=== PATIENT | male | born 1975 | race Caucasian/White ===

== ENCOUNTER 2018-05-10 08:45 | Emergency (ER) | payer OTHER ==
[2018-05-10 08:53] VITALS: BP 148/93
--- NOTE | 2018-05-10 09:08 | ER Document Report ---
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 No fever but he has felt ill this weekend. Associated Symptoms: None Exacerbated by: Walking Relieved by: Denies Similar symptoms previously: No Recently seen / treated by doctor: No - ROS ROS below otherwise negative: Yes Systems Reviewed and Negative: Yes All other systems reviewed and negative Past Medical History - General Information source: Patient - Social History Smoking Status: Unknown if Ever Smoked Frequency of alcohol use: None Drug Abuse: None Lives with: Family Family History: Reviewed & Not Pertinent - Medical History Medical History: Negative Surgical Hx: Negative Vertical Provider Document - CONSTITUTIONAL Agree With Documented VS: Yes Exam Limitations: No Limitations - INFECTION CONTROL TRAVEL OUTSIDE OF THE [place] IN LAST 30 DAYS: No - HEENT HEENT: negative: Conjuctival Injection, Pharyngeal Erythema - NECK Neck: Supple - RESPIRATORY Respiratory: Breath Sounds Normal, No Respiratory Distress - CARDIOVASCULAR Cardiovascular: Regular Rate, Regular Rhythm - MUSCULOSKELETAL/EXTREMETIES Musculoskeletal/Extremeties: MAEW, Tender - 5 mm crusted center to a 2-1/2 cm erythematous lesion proximal posterior left calf - NEURO Level of Consciousness: Alert Motor/Sensory: No Motor Deficit, No Sensory Deficit Course - Vital Signs Vital signs: Temp Pulse Resp BP Pulse Ox 98.1 F 83 18 148/93 H 94 05/10/18 08:50 05/10/18 08:50 05/10/18 08:50 05/10/18 08:50 05/10/18 08:50 Procedures - Incision and Drainage Left Leg Time completed: 09:46 Anesthetic type: 1% Lidocaine mL's of anesthetic: 3 Blade size: 11 I&D procedure: Betadine prep applied Incision Method: Incision made by scalpel - debridement of the necrotic tissue Amount/type of drainage: Debrided the devitalized tissue that was in the center there was no pus Discharge - Discharge Clinical Impression: Leg bite debridement, Tick versus spider bite Condition: Good Disposition: HOME, SELF-CARE Instructions: Dressing Instructions for Open Wounds ([facility]), Swollen Insect Bite or Sting ([facility]) Additional Instructions: Wash with soap and water daily bacitracin gauze dressing Wounds on the lower legs may take up to 3 months to completely heal Return to the emergency room for any increased swelling pain red streaks pus fever Doxycycline until it is gone twice a day Prescriptions: Doxycycline Hyclate 100 mg PO BID #30 tablet
[2018-05-10] MEDS ORDERED: DOXYCYCLINE HYCLATE 100 MG TABLET PO ONE (09:28)
== END 2018-05-10 09:55 | disposition home or self-care (01) ==
LOC: ER 08:45
DX: S80.862A Insect bite (nonvenomous), left lower leg, initial encounter (principal); W57.XXXA Bitten or stung by nonvenomous insect and other nonvenomous arthropods, initial encounter; Y93.H3 Activity, building and construction; Y92.9 Unspecified place or not applicable; Y99.0 Civilian activity done for income or pay
CPT/HCPCS: 99282

== ENCOUNTER 2019-02-07 06:59 | Emergency (ER) | payer SELFPAY ==
[2019-02-07] MEDS ORDERED: ASPIRIN 81 MG TABLET, CHEWABLE PO ONE (07:49)
--- NOTE | 2019-02-07 07:53 | ER Document Report ---
ED General - General Chief Complaint: Chest Pain Stated Complaint: CHEST PAIN Time Seen by Provider: 02/07/19 07:10 TRAVEL OUTSIDE OF THE [place] IN LAST 30 DAYS: No - HPI Notes: Patient is a 44-year-old male who presents to the emergency department for evaluation of chest pain. Substernal with radiation into the back. He states that is been going on intermittently for a few weeks, but worsened this morning. He states that it only lasts a few seconds at the most. He is short of breath with it. He denies any associated diaphoresis or near syncope. He states he has been occasionally dizzy, occasionally nauseated with it. It does not seem to be provoked by any sort of physical activity. In fact, this last episode was brought about all he was sleeping. It does seem to wake him from sleep. He described as a grabbing sensation. - Related Data Allergies/Adverse Reactions: No Known Allergies Allergy (Unverified 05/10/18 08:46) Past Medical History - General Information source: Patient - Social History Smoking Status: Never Smoker Frequency of alcohol use: Rare Drug Abuse: Marijuana Family History: CAD - Father passed from [place] at the age of 57 Renal/ Medical History: Denies: Hx Peritoneal Dialysis Review of Systems - Review of Systems Constitutional: No symptoms reported EENT: No symptoms reported Cardiovascular: See HPI Respiratory: See HPI Gastrointestinal: See HPI Genitourinary: No symptoms reported Musculoskeletal: No symptoms reported Skin: No symptoms reported Neurological/Psychological: No symptoms reported Physical Exam - Vital signs Vitals: Temp Pulse Resp BP Pulse Ox 97.2 F 73 18 171/104 H 94 02/07/19 07:01 02/07/19 07:01 02/07/19 07:01 02/07/19 07:01 02/07/19 07:01 - Notes Notes: Vital signs reviewed, please refer to chart. Head is normocephalic, atraumatic. Pupils equal round, reactive to light. Neck is supple without meningismus. Heart is regular rate and rhythm. Lungs are clear to auscultation bilaterally. Abdomen is soft, nontender, normoactive bowel sounds throughout. Extremities without cyanosis, clubbing. Posterior calves are nontender. Peripheral pulses are equal. Skin is warm and dry. Patient is awake, alert, neurological exam is nonfocal. Course - Re-evaluation Re-evalutation: 02/07/19 12:36 Patient presents to the emergency department for evaluation of chest pain. It is atypical in nature. He is been going on for weeks. He had an episode today that was more intense and woke him from sleep so he presented to the ED for evaluation. His laboratory investigations were unremarkable, including delta troponin. EKG failed to reveal any acute signs of infarction. Patient does have risk factors. His elevated BMI, his elevated blood pressure, and his family history were discussed in great detail. The need for him to adjust his lifestyle and to establish care with a primary care physician was stressed. The patient voiced understanding to this. We will refer him to primary care. He is to return to the ED with worsening or new concerning symptoms of any sort. - Vital Signs Vital signs: Temp Pulse Resp BP Pulse Ox 97.2 F 73 20 165/93 H 92 02/07/19 07:01 02/07/19 07:01 02/07/19 12:01 02/07/19 12:01 02/07/19 12:01 - Laboratory Result Diagrams: 02/07/19 07:43 02/07/19 07:43 Laboratory results interpreted by me: 02/07/19 02/07/19 02/07/19 07:43 07:43 07:43 WBC 11.4 H Glucose 138 H ALT 76 H Creatine Kinase 588 H CK-MB (CK-2) 4.91 H - Diagnostic Test Radiology reviewed: Reports reviewed Radiology results interpreted by me: 02/07/19 12:38 Chest X-Ray 02/07/19 07:49 IMPRESSION: NO ACUTE RADIOGRAPHIC FINDING IN THE CHEST. - EKG Interpretation by Me Additional EKG results interpreted by me: 02/07/19 07:53 Sinus mechanism with a rate of 81 bpm. First-degree AV block. Left axis deviat ion. T wave inversions mild flattening inferiorly, ischemia versus normal variant. No ST changes concerning for acute infarction. No prior studies for comparison. Discharge - Discharge Clinical Impression: Chest pain Qualifiers: Chest pain type: unspecified Qualified Code(s): R07.9 - Chest pain, unspecified Condition: Stable Disposition: HOME, SELF-CARE Instructions: Chest Pain of Unclear Cause ([facility]) Additional Instructions: No clear cause was found for your chest pain today. You need to establish care with a primary care physician. You need to address all of your risk factors, including high blood pressure, cholesterol, etc. Return to the emergency department with worsening or new concerning symptoms of any sort. Forms: Elevated Blood Pressure [facility] [NO LOCAL MD] - Follow up as needed ANGELA BARRERA MD [COMMUNITY BASED STAFF] - Follow up as needed RONALD MARCH MD [ACTIVE STAFF] - Follow up as needed
[2019-02-07 08:02] LABS: ABSOLUTE BASOPHILS # (AUTO) 0.1 10^3/uL (0.0-0.2); ABSOLUTE EOSINOPHILS # (AUTO) 0.1 10^3/uL (0.0-0.6); ABSOLUTE LYMPHOCYTES (AUTO) 3.5 10^3/uL (0.5-4.7); ABSOLUTE MONOCYTES (AUTO) 0.8 10^3/uL (0.1-1.4); BASOPHILS % (AUTO) 0.7 % (0-2); EOSINOPHILS % (AUTO) 1.1 % (0-6); HEMATOCRIT 47.7 % (37.9-51.0); HEMOGLOBIN 15.8 g/dL (13.5-17.0); LYMPHOCYTES % (AUTO) 30.2 % (13-45); MEAN CORPUSCULAR HEMOGLOBIN 28.9 pg (27.0-33.4); MEAN CORPUSCULAR HGB CONC 33.1 g/dL (32.0-36.0); MEAN CORPUSCULAR VOLUME 87 fl (80-97); MONOCYTES % (AUTO) 7.2 % (3-13); PLATELET COUNT 285 10^3/uL (150-450); RED BLOOD COUNT 5.47 10^6/uL (4.35-5.55); RED CELL DISTRIBUTION WIDTH 12.9 % (11.5-14.0); SEGMENTED NEUTROPHILS % (AUTO) 60.8 % (42-78); TOTAL CELLS COUNTED % (AUTO) 100 %; WHITE BLOOD COUNT 11.4 10^3/uL (4.0-10.5)
[2019-02-07 08:25] LABS: ALANINE AMINOTRANSFERASE 76 U/L (21-72); ALBUMIN 3.9 g/dL (3.5-5.0); ALKALINE PHOSPHATASE 79 U/L (38-126); ANION GAP 10 (5-19); ASPARTATE AMINO TRANSFERASE 46 U/L (17-59); BILIRUBIN,DIRECT 0.3 mg/dL (0.0-0.4); BLOOD UREA NITROGEN 12 mg/dL (7-20); CALCIUM 9.8 mg/dL (8.4-10.2); CARBON DIOXIDE 29 mmol/L (22-30); CHLORIDE 103 mmol/L (98-107); CREATINE KINASE 588 U/L (55-170); GLUCOSE 138 mg/dL (75-110); POTASSIUM 4.5 mmol/L (3.6-5.0); SODIUM 141.7 mmol/L (137-145); TOTAL PROTEIN 7.2 g/dL (6.3-8.2)
--- NOTE | 2019-02-07 08:33 | RADIOLOGY REPORT (SQ) ---
EXAM DESCRIPTION: CHEST SINGLE VIEW COMPLETED DATE/TIME: 02/07/2019 8:08 am REASON FOR STUDY: chest pain COMPARISON: None. EXAM PARAMETERS: NUMBER OF VIEWS: One view. TECHNIQUE: Single frontal radiographic view of the chest acquired. RADIATION DOSE: NA LIMITATIONS: Obese patient, portable technique FINDINGS: LUNGS AND PLEURA: No opacities, masses or pneumothorax. No pleural effusion. MEDIASTINUM AND HILAR STRUCTURES: No masses. Contour normal. HEART AND VASCULAR STRUCTURES: Heart normal in size. Normal vasculature. BONES: No acute findings. HARDWARE: None in the chest. OTHER: No other significant finding. IMPRESSION: NO ACUTE RADIOGRAPHIC FINDING IN THE CHEST. TECHNICAL DOCUMENTATION: JOB ID: [id number] [employer]- All Rights Reserved Reading location - IP/workstation name: [email or web address]
[2019-02-07 08:36] LABS: CREATINE KINASE MB 4.91 ng/mL (<4.55); TROPONIN I 0.013 ng/mL
[2019-02-07 13:03] VITALS: BP 187/94
--- NOTE | 2019-02-07 16:10 | EKG REPORT ---
SEVERITY:- ABNORMAL ECG - SINUS RHYTHM FIRST DEGREE AV BLOCK LEFT AXIS DEVIATION BORDERLINE T ABNORMALITIES, INFERIOR LEADS : Confirmed by: Nicol Mancera MD 07-Feb-2019 16:09:42
== END 2019-02-07 13:04 | disposition home or self-care (01) ==
LOC: ER 06:59
DX: R07.89 Other chest pain (principal); I44.0 Atrioventricular block, first degree; I10 Essential (primary) hypertension; R06.02 Shortness of breath; R42 Dizziness and giddiness; R11.0 Nausea; F12.10 Cannabis abuse, uncomplicated; Z82.49 Family history of ischemic heart disease and other diseases of the circulatory system
CPT/HCPCS: 36415; 71045; 80053; 82550; 82553; 84484; 85025; 93005; 93010; 99284

== ENCOUNTER 2019-04-16 16:39 | Emergency (ER) | payer SELFPAY ==
--- NOTE | 2019-04-16 17:12 | ER Document Report ---
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 Patient states that he has intermittent swelling to his knee without redness or warmth. Patient states that stairs make his pain worse and he feels like his knee is going to give out on him. Denies drug allergies. No other concerns or complaints. No surgeries to his knee before. Denies any headache, fever, URI, sore throat, chest pain, palpitations, syncope, cough, shortness of breath, wheeze, dyspnea, abdominal pain, nausea/vomiting/diarrhea, urinary retention, dysuria, hematuria, or rash. - ROS Systems Reviewed and Negative: Yes All other systems reviewed and negative - MUSCULOSKELETAL Musculoskeletal: REPORTS: Extremity pain - L knee Past Medical History - Social History Smoking Status: Never Smoker Frequency of alcohol use: None Drug Abuse: None Family History: CAD - Father passed from [place] at the age of 57 Patient has suicidal ideation: No Patient has homicidal ideation: No Renal/ Medical History: Denies: Hx Peritoneal Dialysis Vertical Provider Document - CONSTITUTIONAL Agree With Documented VS: No - see updated, he would get up to 95% on RA Notes: PHYSICAL EXAMINATION: GENERAL: Well-appearing, well-nourished and in no acute distress. LUNGS: Breath sounds clear to auscultation bilaterally and equal. No wheezes rales or rhonchi. HEART: Regular rate and rhythm without murmurs, rubs, gallops. Musculoskeletal: Lt knee: No obvious swelling, ecchymosis, effusion, or deformity. FROM to passive/active and flexion >90 w/o difficulty or tenderness. Strength 5+/5. N/V intact distal. + mild joint line tenderness b/l. Ligamentous grossly stable, limited exam with larger leg size. Feliciano grossly negative. Patellar grind negative. No calf tenderness. Extremities: No cyanosis, clubbing, or edema b/l. Peripheral pulses 2+. Capillary refill less than 3 seconds. Katie neg b/l. NEUROLOGICAL: Normal speech, normal gait. Normal sensory, motor exams PSYCH: Normal mood, normal affect. SKIN: Warm, Dry, normal turgor, no rashes or lesions noted. - INFECTION CONTROL TRAVEL OUTSIDE OF THE [place] IN LAST 30 DAYS: No Course - Re-evaluation Re-evalutation: 04/16/19 18:25 Patient is an afebrile, well-hydrated, 44-year-old male who presents to the ED with left knee pain, possible cartilage involvement. Vitals are acceptable without any significant tachycardia, tachypnea, or hypoxia. PE is otherwise unremarkable for any neurovascular compromise, obvious tendon/ligament rupture, obvious fracture/dislocation, septic joint. X-ray was unremarkable for any acute pathology. Patient is nontoxic-appearing. Patient is able to ambulate and weight-bear. No other labs or imaging warranted at this time based on H&P. Conservative measures otherwise for symptoms. Recheck with your PCM in 3-5 days. Schedule consult with orthopedics. Return to the ED with any worsening/concerning symptoms otherwise as reviewed in discharge. Patient is in agreement. Discharge - Discharge Clinical Impression: Left knee pain Qualifiers: Chronicity: acute Qualified Code(s): M25.562 - Pain in left knee Condition: Stable Disposition: HOME, SELF-CARE Additional Instructions: Rest, Ice, Compression, Elevation Tylenol/ibuprofen as needed Light stretches daily Strength exercises as able Moist heat and massage may help F/u with your PCP in 3-5 days for a recheck Schedule consult with orthopedics for further evaluation and management Return to the ED with any worsening symptoms and/or development of fever, headache, chest pain, palpitations, syncope, shortness of breath, trouble breathing, abdominal pain, n/v/d, muscle weakness/paralysis, numbness/tingling, swelling, redness, or other worsening symptoms that are concerning to you. Prescriptions: Naproxen 500 mg PO BID #10 tablet Forms: Elevated Blood Pressure Referrals: [facility] [Provider Group] - Follow up in 1 week
--- NOTE | 2019-04-16 18:19 | RADIOLOGY REPORT (SQ) ---
EXAM DESCRIPTION: KNEE LEFT 4 VIEW COMPLETED DATE/TIME: 04/16/2019 5:32 pm REASON FOR STUDY: left knee pain COMPARISON: None. NUMBER OF VIEWS: Four views. TECHNIQUE: AP, lateral, and both oblique radiographic images acquired of the left knee. LIMITATIONS: None. FINDINGS: MINERALIZATION: Normal. BONES: No acute fracture or dislocation. Mild degenerative changes are noted. JOINT: No effusion. SOFT TISSUES: No soft tissue swelling. No radio-opaque foreign body. IMPRESSION: No radiographic evidence for acute fracture at the left knee. TECHNICAL DOCUMENTATION: JOB ID: [id number] [employer]- All Rights Reserved Reading location - IP/workstation name: [email or web address]
[2019-04-16 18:31] VITALS: BP 141/86
== END 2019-04-16 18:44 | disposition home or self-care (01) ==
LOC: ER 16:39
DX: M25.562 Pain in left knee (principal); M17.0 Bilateral primary osteoarthritis of knee
CPT/HCPCS: 99283

== ENCOUNTER 2020-04-16 09:12 | Emergency (ER) | payer SELFPAY ==
[2020-04-16 09:19] VITALS: BP 166/91
--- NOTE | 2020-04-16 09:54 | ER Document Report ---
ED Skin Rash/Insect Bite/Abscs - General Chief Complaint: Rash Stated Complaint: RASH Time Seen by Provider: 04/16/20 09:37 Primary Care Provider: DAMARI COLEMAN MD [Primary Care Provider] - Follow up as needed Mode of Arrival: Ambulatory Information source: Patient Notes: 45-year-old male with no previous medical problems presents to the emergency room complaining of a rash to his bilateral forearms that started 5 days ago. Patient states he just completed a 12-day course of prednisone the day after the rash started that he was taking for knee pain. Denies any history of allergic reactions to medications in the past. Denies any new foods. Denies any other new medications. Has taken prednisone in the past without a reaction. Has been doing a lot of work out in the sun. Denies any recent travel. No COVID-19 exposure. No one else at home with rash. States he took one Benadryl last night with minimal relief. TRAVEL OUTSIDE OF THE [place] IN LAST 30 DAYS: No - Related Data Allergies/Adverse Reactions: No Known Allergies Allergy (Verified 04/16/19 16:44) Past Medical History - General Information source: Patient - Social History Smoking Status: Never Smoker Frequency of alcohol use: None Drug Abuse: None Family History: CAD - Father passed from [place] at the age of 57 Renal/ Medical History: Denies: Hx Peritoneal Dialysis Review of Systems - Review of Systems Constitutional: No symptoms reported Cardiovascular: No symptoms reported Respiratory: No symptoms reported Gastrointestinal: No symptoms reported Skin: Rash Neurological/Psychological: No symptoms reported -: Yes All other systems reviewed and negative Physical Exam - Vital signs Vitals: Temp Pulse Resp BP Pulse Ox 97.7 F 85 20 166/91 H 97 04/16/20 09:17 04/16/20 09:17 04/16/20 09:17 04/16/20 09:17 04/16/20 09:17 - General General appearance: Appears well, Alert In distress: Mild - HEENT Head: Normocephalic, Atraumatic Eyes: Normal Pupils: PERRL - Respiratory Respiratory status: No respiratory distress Chest status: Nontender Breath sounds: Normal Chest palpation: Normal - Cardiovascular Rhythm: Regular Heart sounds: Normal auscultation Murmur: No - Neurological Neuro grossly intact: Yes Cognition: Normal Orientation: AAOx4 Cristofer Coma Scale Eye Opening: Spontaneous Cristofer Coma Scale Verbal: Oriented Cristofer Coma Scale Motor: Obeys Commands [place] Coma Scale Total: 15 Speech: Normal Motor strength normal: LUE, RUE, LLE, RLE Sensory: Normal - Skin Skin Temperature: Warm Skin Moisture: Dry Skin Color: Erythema Skin irregularity: Erythema, Rash Location of irregularity: Extremities Character of irregularity: Linear, Erythematous Irregularity with: Warmth. negative: Tenderness, Induration, Weeping Course - Re-evaluation Re-evalutation: 04/16/20 09:52 Patient with a erythematous rash that is noted to the bilateral forearms. It is warm but nontender to palpation. There is no active discharge or draining noted. Patient has just completed 12-day course of prednisone cannot give any additional p.o. prednisone. Patient states he has taken Vistaril in the past with relief of itching. We will also prescribe topical Kenalog cream. He was counseled need to follow-up with his primary care physician if not improving in 2 days. Patient was given strict return to the emergency room guidelines. Ret urn for any new or worsening symptoms. All questions were answered. Patient verbalized understanding and agrees with plan of care. 04/16/20 13:03 - Vital Signs Vital signs: Temp Pulse Resp BP Pulse Ox 97.7 F 85 20 166/91 H 97 04/16/20 09:17 04/16/20 09:17 04/16/20 09:17 04/16/20 09:17 04/16/20 09:17 Discharge - Discharge Clinical Impression: Rash and nonspecific skin eruption Condition: Stable Disposition: HOME, SELF-CARE Instructions: Contact Dermatitis ([facility]) Additional Instructions: Use Kenalog cream as prescribed. Take Vistaril as prescribed. Recheck with your primary care physician in 2 days. Return to the emergency room for any new or worsening symptoms. Prescriptions: Triamcinolone Acetonide 2 gm TP TID 10 Days #80 oint..gm. Hydroxyzine Pamoate [Vistaril 25 mg Capsule] 25 mg PO TID #30 capsule Forms: Return to Work Referrals: DAMARI COLEMAN MD [Primary Care Provider] - Follow up as needed
== END 2020-04-16 10:03 | disposition home or self-care (01) ==
LOC: ER 09:12
DX: R21 Rash and other nonspecific skin eruption (principal)
CPT/HCPCS: 99282